=== PATIENT | female | born 2005 | race African-American/Black ===

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

== ENCOUNTER 2023-02-22 18:43 | Emergency (ER) | payer OTHER, SELFPAY ==
[2023-02-22 21:38] LABS: Bilirubin Negative (Negative); Blood, Urine Negative (Negative); CAUTI Indications for Culture Pelvic or flank pain; Clarity Clear (Clear); Glucose, Urine (Dipstick) Normal (Negative); Ketone, Urine 20 mg/dL (Negative); Leukocyte 25 Leu/uL (Negative); Mucous/LPF Rare LPF (<2+); Nitrite Negative (Negative); Pregnancy Test - Urine (BHCG) Negative (Negative); Protein, Urine (Dipstick) Negative (Neg-Trace); RBC/HPF 0-3 HPF (0-3); Specific Gravity 1.014 (1.002-1.036); Specific Gravity, Urine 1.014 (1.002-1.036); Squamous Epithelial 0-3 HPF (0-3); Urobilinogen Normal mg/dL (Less than 2); WBC/HPF 0-3 HPF (0-3); pH, Urine 5.5 (5.0-9.0)
[2023-02-22 21:39] LABS: Pregu Control Background? CLEAR/WHITE (CLR/WHITE); Pregu Control Bar Appear? YES (CONTROL BAR)
[2023-02-22 21:49] LABS: Bacteria/HPF Rare-Few HPF (None Seen)
[2023-02-22 21:51] LABS: Urine Culture Reflex No No
[2023-02-22] MEDS ORDERED: cefTRIAXone (ROCEPHIN) 500 MG VIAL ONE (22:49)
[2023-02-22] MEDS ORDERED: Lidocaine 1% PF 5 ML VIAL ONE (22:49)
[2023-02-23 11:37] LABS: Chlam.trachomatis by PCR,Urine Not Detected (NotDetected); GC N.gonorrhoeae PCR,UrineVOID Not Detected (NotDetected)
== END 2023-02-22 23:59 | disposition home or self-care (01) ==
LOC: ERS 18:43
DX: L73.1 Pseudofolliculitis barbae (principal); K64.4 Residual hemorrhoidal skin tags; N89.8 Other specified noninflammatory disorders of vagina; F17.290 Nicotine dependence, other tobacco product, uncomplicated; Z20.2 Contact with and (suspected) exposure to infections with a predominantly sexual mode of transmission
CPT/HCPCS: 81001; 81025; 87491; 87591; 96372; 99283; J0696

== ENCOUNTER 2024-12-25 10:11 | Emergency (ER) | payer SELFPAY ==
[2024-12-25] MEDS ORDERED: Ketorolac Tromethamine 30 MG (1 mL) VIAL ONE (12:21)
== END 2024-12-25 12:37 | disposition home or self-care (01) ==
LOC: ERS 10:11
DX: M54.50 Low back pain, unspecified (principal); F17.290 Nicotine dependence, other tobacco product, uncomplicated; X50.0XXA Overexertion from strenuous movement or load, initial encounter; Y99.0 Civilian activity done for income or pay
CPT/HCPCS: 96372; 99283; J1885